=== PATIENT | female | born 1930 | race Caucasian/White ===

== ENCOUNTER 2018-04-07 14:17 | Inpatient (IN) | payer OTHER, MEDICARE ==
--- NOTE | 2018-04-07 14:28 | PDOC ---
Rapid Medical Evaluation Medical Evaluation: I have performed a brief in-person evaluation of this patient. The patient presents with a chief complaint of: Hx of atrial fibrillation on Coumadin; ecchymosis to dorsal surface of R hand from last night; saw PCP today , had INR of >8 and was sent to ED; also endorses having hematuria today; denies trauma; is taking 8 mg of Coumadin daily (used to take 9 mg, but decreased to 8 mg around 1 month ago), denies other active bleeding Pertinent physical exam findings: In NAD, bruise to dorsal aspect of R hand I have ordered the following: Labs The patient will proceed to the ED for further evaluation. 04/07/18 14:24
[2018-04-07 16:05] LABS: BASO % 0.3 % (0-2.0); EOS % 0.2 % (0-4.5); HEMATOCRIT 32.4 % (32.4-45.2); HEMOGLOBIN 10.8 GM/dL (10.7-15.3); LYMPH % 15.5 % (8-40); MCH 28.2 pg (25.7-33.7); MCHC 33.5 g/dl (32.0-36.0); MEAN CELL VOLUME 84.4 fl (80-96); MEAN PLT VOLUME 8.9 fl (7.5-11.1); MONO % 10.4 % (3.8-10.2); NEUT % 73.6 % (42.8-82.8); PLATELET COUNT 169 K/MM3 (134-434); RBC 3.84 M/mm3 (3.60-5.2); RDW 16.8 % (11.6-15.6); WHITE BLOOD COUNT 6.6 K/mm3 (4.0-10.0)
--- NOTE | 2018-04-07 16:12 | PDOC ---
History of Present Illness - General Chief Complaint: Revisit, Lab Variance Stated Complaint: PCP SENT Time Seen by Provider: 04/07/18 15:22 History Source: Patient Exam Limitations: No Limitations - History of Present Illness Initial Comments: 87 yo F with a hx of afib on coumadin (8 mg daily) presents to the emergency department from her PMD (Dr. Watkins) after a routine check for INR that showed 8. Per the patient, she had bruising on the right elbow secondary to hitting a door yesterday with a spontaneous bruise appearing throughout her lateral dorsal right hand overnight. Per the patient, she had hematuria today that was painless while at PMD's office. She has new onset of periumbilical pain that is sharp in nature without radiation and constant. She denies the following: change in diet, recent antibiotic use, and taking more than her prescribed dose. She had her last INR in mid 2017 that was supratherapeutic (unknown value) and had her warfarin reduced from 9 mg to 8 mg. Per the patient, she denies the following: weakness, FND, headaches, visual changes, chest pain, SOB , dysuria, increased urinary frequency, hematochezia, melena, and leg pain/ swelling. Shx: Appendectomy (in childhood) Meds: metoprolol, lasix, warfarin Allergies: tetracyclines Social: Denies tobacco, alcohol, and substance abuse. Past History - Past Medical History Allergies/Adverse Reactions: Allergies Allergy/AdvReac Type Severity Reaction Status Date / Time Tetracyclines Allergy Verified 04/07/18 15:45 duracef Allergy Uncoded 04/07/18 15:45 Home Medications: Ambulatory Orders Furosemide [Lasix] 20 mg PO DAILY 04/07/18 Metoprolol Succinate [Toprol Xl] 50 mg PO DAILY 04/07/18 Potassium 0 mg PO DAILY 04/07/18 Warfarin Sodium [Coumadin] 8 mg PO HS 04/07/18 Cardiac Disorders: Yes (afib) COPD: No CHF: Yes HTN: Yes - Surgical History Appendectomy: Yes - Suicide/Smoking/Psychosocial Hx Smoking History: Former smoker Have you smoked in the past 12 months: No Information on smoking cessation initiated: No Hx Alcohol Use: No Drug/Substance Use Hx: No Review of Systems - Review of Systems Able to Perform ROS?: Yes Is the patient limited Ukrainian proficient: No Constitutional: No: Chills, Diaphoresis, Fever, Weakness HEENTM: No: Eye Pain, Recent change in vision, Ear Pain, Nose Pain, Throat Pain , Mouth Pain Respiratory: No: Cough, Shortness of Breath, SOB with Exertion, Hemoptysis Cardiac (ROS): No: Chest Pain, Lightheadedness, Palpitations, Syncope, Chest Tightness ABD/GI: Yes: Abdominal cramping. No: Constipated, Diarrhea, Nausea, Poor Appetite, Poor Fluid Intake, Rectal Bleeding, Vomiting, Tarry Stools : Yes: Hematuria. No: Burning, Dysuria, Urgency Musculoskeletal: No: Back Pain, Joint Pain, Neck Pain Integumentary: Yes: Bruising. No: Dryness, Erythema, Flushing, Lesions, Lumps, Rash Neurological: No: Headache, Numbness, Paresthesia, Tingling, Tremors, Weakness, Ataxia, Dizziness Endocrine: No: Unexplained Weight Gain Hematologic/Lymphatic: No: Anemia *Physical Exam - Vital Signs Last Vital Signs Temp Pulse Resp BP Pulse Ox 98.9 F 105 H 20 146/78 97 04/07/18 15:42 04/07/18 15:42 04/07/18 15:42 04/07/18 15:42 04/07/18 15:52 - Physical Exam General Appearance: Yes: Nourished, Appropriately Dressed. No: Apparent Distress, Intoxicated HEENT: positive: EOMI, YANDY, Normal Voice, Symmetrical, Pharynx Normal, Hearing Grossly Normal. negative: Pale Conjunctivae, Scleral Icterus (R), Scleral Icterus (L), Muffled/Hoarse voice, Pharyngeal Erythema, Tonsillar Exudate, Tonsillar Erythema, Nasal Congestion, Rhinorrhea, Excessive drooling Neck: positive: Trachea midline, Supple. negative: Tender, Rigid, Lymphadenopathy (R), Lymphadenopathy (L), Tender lateral, Tender midline Respiratory/Chest: positive: Lungs Clear, Normal Breath Sounds. negative: Chest Tender, Respiratory Distress, Accessory Muscle Use, Crackles, Rales, Rhonchi, Stridor, Wheezing, Hyperresonant Cardiovascular: positive: S1, S2, Tachycardia, Systolic Murmur (grade 2), Irregularly Irregular Gastrointestinal/Abdominal: positive: Normal Bowel Sounds, Tender (mild periumbilical pain), Flat, Soft. negative: Protuberent, Distended, Rebound, Hernia Lymphatic: negative: Adenopathy Musculoskeletal: positive: Normal Inspection. negative: CVA Tenderness, Vertebral Tenderness Extremity: positive: Normal Capillary Refill, Normal Range of Motion, Other ( ecchymosis throughout the lateral right dorsal hand. ecchymosis on the right elbow with tenderness to palpation the radial head. ). negative: Normal Inspection, Tender Integumentary: positive: Dry, Warm, Ecchymosis. negative: Jaundice, Diaphoresis , Hives, Petechiae Neurologic: positive: dry color mixer II-XII NML intact, Fully Oriented, Alert, Normal Mood/ Affect, Normal Response, Motor Strength 5/5. negative: EOM Palsy, Facial Droop , Sensory Deficit Moderate Sedation - Procedure Monitoring Vital Signs: Procedure Monitoring Vital Signs Temperature 98.9 F 04/07/18 15:42 Pulse Rate 105 H 04/07/18 15:42 Respiratory Rate 20 04/07/18 15:42 Blood Pressure 146/78 04/07/18 15:42 O2 Sat by Pulse Oximetry (%) 97 04/07/18 15:52 ED Treatment Course - LABORATORY CBC & Chemistry Diagram: 04/07/18 15:10 04/07/18 15:10 Medical Decision Making - Medical Decision Making 87 yo F with a hx of afib on coumadin (8 mg daily) presents to the emergency department from her PMD (Dr. Watkins) after a routine check for INR that showed 8. Initial vitals: Initial Vital Signs Temp Pulse Resp BP Pulse Ox 98.9 F 105 H 20 146/78 97 04/07/18 15:42 04/07/18 15:42 04/07/18 15:42 04/07/18 15:42 04/07/18 15:42 Work up: ddx: hematuria likely secondary to supratherapeutic INR. patient denies recent abx, diet change, and increased dosage. patient denies hx of malignancy. unclear etiology to cause INR derangements. will assess INR in ED to guide management. Laboratory Tests 04/07/18 04/07/18 04/07/18 15:10 15:10 15:10 WBC 6.6 RBC 3.84 Hgb 10.8 Hct 32.4 MCV 84.4 MCH 28.2 MCHC 33.5 RDW 16.8 H Plt Count 169 MPV 8.9 Absolute Neuts (auto) 4.8 Neutrophils % 73.6 Lymphocytes % 15.5 Monocytes % 10.4 H Eosinophils % 0.2 Basophils % 0.3 Nucleated RBC % 0 PT with INR 192.80 H INR 15.89 H* PTT (Actin FS) 84.0 H Sodium 142 Potassium 4.2 Chloride 108 H Carbon Dioxide 25 Anion Gap 9 BUN 10 Creatinine 0.6 Creat Clearance w eGFR > 60 Random Glucose 102 Calcium 8.6 Total Bilirubin 0.8 AST 23 ALT 20 Alkaline Phosphatase 94 Total Protein 6.7 Albumin 3.6 Urine Color Urine Appearance Urine pH Ur Specific [place] Urine Protein Urine Glucose (UA) Urine Ketones Urine Blood Urine Nitrite Urine Bilirubin Urine Urobilinogen Ur Leukocyte Esterase Urine WBC (Auto) Urine RBC (Auto) Urine Bacteria 04/07/18 16:39 WBC RBC Hgb Hct MCV MCH MCHC RDW Plt Count MPV Absolute Neuts (auto) Neutrophils % Lymphocytes % Monocytes % Eosinophils % Basophils % Nucleated RBC % PT with INR INR PTT (Actin FS) Sodium Potassium Chloride Carbon Dioxide Anion Gap BUN Creatinine Creat Clearance w eGFR Random Glucose Calcium Total Bilirubin AST ALT Alkaline Phosphatase Total Protein Albumin Urine Color Red Urine Appearance Cloudy Urine pH 8.0 Ur Specific [place] 1.011 Urine Protein 2+ H Urine Glucose (UA) Negative Urine Ketones Negative Urine Blood 3+ H Urine Nitrite Negative Urine Bilirubin Negative Urine Urobilinogen Negative Ur Leukocyte Esterase Negative Urine WBC (Auto) 116 Urine RBC (Auto) 2439 Urine Bacteria Moderate INR 15.89 with a normal BUN/cr. unlikely that the raised INR due to underlying CKD or [place]. UA shows 3+ blood with 2439 RBC but no anemia. moderate urine bacteria. will order abdomen pelvis CT with contrast to evaluate for bleeding in the abdominal cavity in the setting of abdominal pain. patient was given 5 mg of Vitamin K. Will sign out patient to Dr. Amezquita with pending imaging results. *DC/Admit/Observation/Transfer Diagnosis at time of Disposition: Supratherapeutic INR - Referrals - Patient Instructions - Post Discharge Activity
--- NOTE | 2018-04-07 16:32 | PDOC ---
Attending Attestation - Medical Decision Making 04/07/18 16:48 Dr. Watkins was paged and notified via phone service. <Kamilla Vuong - Last Filed: 04/07/18 16:48> - Resident Resident Name: JennCleveland - ED Attending Attestation I have performed the following: I have examined & evaluated the patient, The case was reviewed & discussed with the resident, I agree w/resident's findings & plan - HPI HPI: 04/07/18 16:26 87-year-old female with history of atrial fibrillation on Coumadin sent from Dr. Watkins's office for supratherapeutic INR 9 on routine follow-up. Has noted painless gross hematuria for 1-2 days, and onset of supraumbilicial abd pain today without n/v/d. Bumped her R elbow into a door and has had bruising in the area, over the last day had reportedly spontaneous bruising of dorsum R hand, no pain or motor/ sensory deficit. no hematemesis/melena/BRBPR. no new meds/abx, no diet change, no mistakes in dosing. Sent here for management from Dr. Watkins's office. - Physicial Exam PE: 04/07/18 16:35 VSS, well appearing and conversant op clear without dry blood or active bleeding irreg with normal rate, lungs clear supraumbilical discomfort to palpation without guarding/rebound, no pulsatile mass, no bruising on abd or back/flank RUE: bruising over dorsal R elbow with ttp proximal radius, no joint effusion and FROM. R dorsal hand bruising without ttp/deformity, FROM with full strength. nvi. neuro intact no cvat - Medical Decision Making 04/07/18 16:37 87-year-old female presents after routine INR showed supratherapeutic level despite baseline dosing. Hemodynamically stable here but with gross hematuria at home, supraumbilical abdominal pain and discomfort on exam, and right arm bruising after minor injury. Check labs including hemoglobin and INR Check urinalysis Check CT of the abdomen and pelvis as per sending physician requests to rule out intraperitoneal bleed Right elbow x-ray to rule out possible radius fracture If above is within normal limits, no evidence of life-threatening bleed, could reverse with oral vitamin K, hold Coumadin, and arrange outpatient retesting. 04/07/18 17:05 INR >15, will start vitamin K and admit for INR monitoring. CTAP pending <Andrew Coon - Last Filed: 04/07/18 17:09>
[2018-04-07 16:42] LABS: PROTHROMBIN TIME (PATIENT) 192.8 SEC (9.7-13.0)
[2018-04-07 16:43] LABS: INR 15.89 (0.83-1.09)
[2018-04-07] MEDS ORDERED: PHYTONADIONE 5 MG TABLET PO ONE (16:48)
[2018-04-07 16:51] LABS: URINE APPEARANCE CLOUDY; URINE BILIRUBIN NEGATIVE (<2.0 mg/dL); URINE COLOR RED; URINE GLUCOSE (UA) NEGATIVE (NEGATIVE); URINE KETONE NEGATIVE (NEGATIVE); URINE LEUK ESTERASE NEGATIVE (NEGATIVE); URINE NITRITE NEGATIVE (NEGATIVE); URINE PROTEIN 2+ (NEGATIVE); URINE UROBILINOGEN NEGATIVE mg/dL (0.2-1.0)
[2018-04-07 17:03] LABS: URINE BACTERIA MODERATE /hpf (NONE SEEN)
[2018-04-07] MEDS ORDERED: PHYTONADIONE 5 MG TABLET ONE (17:41)
[2018-04-07 18:23] LABS: ALBUMIN 3.6 g/dl (3.4-5.0); ALK PHOS 94 U/L (45-117); ANION GAP 9 MMOL/L (8-16); BILIRUBIN,TOTAL 0.8 mg/dL (0.2-1); BLOOD UREA NITROGEN 10 mg/dL (7-18); CALCIUM 8.6 mg/dL (8.5-10.1); CHLORIDE 108 mmol/L (98-107); CO2 25 mmol/L (21-32); CREATININE 0.6 mg/dL (0.55-1.3); GLUCOSE,RANDOM 102 mg/dL (74-106); POTASSIUM 4.2 mmol/L (3.5-5.1); SGOT/AST 23 U/L (15-37); SGPT/ALT 20 U/L (13-61); SODIUM 142 mmol/L (136-145); TOT PROT 6.7 g/dl (6.4-8.2)
--- NOTE | 2018-04-07 23:09 | HP ---
Admitting History and Physical - Primary Care Physician PCP: Nona Montenegro - Admission Chief Complaint: bruising, bleeding gums and hematuria History of Present Illness: 87 yo F with a hx of afib on coumadin (8 mg daily) presents to the emergency department as recommended by her PCP (Dr. Watkins). Ms. Garza reports several days of bleeding gums which progressed to include swelling and bruising to right hand, lower abdominal pain, left flank pain and hematuria on the morning of 04/07. Pt denies any inciting incident to cause swelling and bruising to right hand. Patient denies, blood in stool/hemoptysis/headache/nosebleed/SOB/CP or visual changes. Ms. Garza now presents to ED after she sought evaluation in her PCPs office where her INR was noted to be 8. Vitals in ED: T 98.9, HR 105, RR 20, BP 146/78, O2sat 97%. coags: PT/NR 192/16, PTT 84. H/H 10.8/32.4 UA shows 3+ blood with 2439 RBC but no anemia. moderate urine bacteria. abdomen pelvis CT with contrast done to evaluate for bleeding in the abdominal cavity in the setting of abdominal pain. patient was given 5 mg of Vitamin K oral pt admitted for continued management of supratherapeutic INR. History Source: Patient Limitations to Obtaining History: No Limitations - Past Medical History Cardiovascular: Yes: AFIB, HTN ...: No Rheumatology: Yes: Other (osteoarthritis) - Past Surgical History Past Surgical History: Yes: Appendectomy, Cataract Removal - Advance Directives Advance Directives: Yes: Health Care Proxy (Daughter: Allyson Pearson Granddaughter: Rahel: [phone]) - Smoking History Smoking history: Former smoker Have you smoked in the past 12 months: No - Alcohol/Substance Use Hx Alcohol Use: No History of Substance Use: reports: None - Social History Usual Living Arrangement: Yes: Alone ADL: Independent History of Recent Travel: No Home Medications - Allergies Allergies/Adverse Reactions: Allergies Allergy/AdvReac Type Severity Reaction Status Date / Time lidocaine [From Xylocaine] Allergy Verified 04/07/18 23:07 Tetracyclines Allergy Verified 04/07/18 15:45 duracef Allergy Uncoded 04/07/18 15:45 - Home Medications Home Medications: Ambulatory Orders Furosemide [Lasix] 20 mg PO DAILY 04/07/18 Metoprolol Succinate [Toprol Xl] 50 mg PO DAILY 04/07/18 Potassium 0 mg PO DAILY 04/07/18 Warfarin Sodium [Coumadin] 8 mg PO HS 04/07/18 Family Disease History - Family Disease History Family Disease History: Other: Father ( (70) CVAs), Mother ( (91 ) Afib, angina), Sister ( (89) dementia, PNA) Review of Systems - Review of Systems Constitutional: reports: No Symptoms Eyes: reports: No Symptoms HENT: reports: Gingival Bleeding Neck: reports: No Symptoms Cardiovascular: reports: No Symptoms Respiratory: reports: No Symptoms Gastrointestinal: reports: No Symptoms Genitourinary: reports: Hematuria Breasts: reports: No Symptoms Reported Musculoskeletal: reports: No Symptoms Integumentary: reports: Bruising (right hand) Neurological: reports: No Symptoms Endocrine: reports: No Symptoms Hematology/Lymphatic: reports: Easily Bruised, Excessive Bleeding Psychiatric: reports: No Symptoms Physical Examination Vital Signs: Vital Signs Temperature 98.8 F 04/07/18 21:34 Pulse Rate 109 H 04/07/18 21:34 Respiratory Rate 18 04/07/18 21:34 Blood Pressure 148/84 04/07/18 21:34 O2 Sat by Pulse Oximetry (%) 97 04/07/18 21:34 Constitutional: Yes: Well Nourished, No Distress, Calm Eyes: Yes: Conjunctiva Clear, PERRL HENT: Yes: Atraumatic, Normocephalic Neck: Yes: Supple, Trachea Midline Cardiovascular: Yes: Pulse Irregular, Murmur (systolic murmur across precordium 3/5) Respiratory: Yes: Regular, CTA Bilaterally Gastrointestinal: Yes: Normal Bowel Sounds, Soft, Tenderness (LLQ) ...Rectal Exam: Yes: Deferred Renal/: Yes: Hematuria Musculoskeletal: Yes: Joint Stiffness, Other (arthritic nodes fingers of left hand) Extremities: Yes: WNL Edema: Yes Edema: LLE: Trace, RLE: Trace Peripheral Pulses WNL: Yes Peripheral Pulses: Left Radial: 2+, Right Radial: 2+ Integumentary: Yes: Bruising Neurological: Yes: Alert, Oriented ...Motor Strength: WNL Psychiatric: Yes: Alert, Oriented Labs: CBC, BMP 04/07/18:10 04/07/18 15:10 Imaging - Results Cat Scan: Report Reviewed (CT abd / pelvis 04/07/15 Impression: Increased density is seen within the left renal sinus fat surrounding the renal pelvis possibly representing blood, or inflammatory/infectious edema, and probably less likely neoplastic disease. MRI evaluation may be helpful. There is associated concentric soft tissue thickening surrounding the proximal third of the left ureter. Left perirenal soft tissue stranding is noted. Minimal left hydronephrosis is seen. Reported By: Dong Heart MD 04/07/18 [id number]) Other: Report Reviewed (CT abd and pelvis with contrast 04/07/2018 IMPRESSION: No intra-abdominal/retroperitoneal hematoma is identified. Nonspecific soft tissue stranding is seen within the left renal pelvis which could be on the basis of edema, pyelonephritis, neoplastic disease or subacute blood. No focal hematoma is noted. There also appears to be mildly diminished enhancement of the left renal cortex. Left perirenal soft tissue edema is also visualized. There is possible associated ipsilateral periureteral soft tissue edema. Probable minimal to mild left hydronephrosis is seen. There is no obvious ureteral dilatation. No definite radiopaque calculus is seen on contrast- enhanced imaging. Correlation with follow-up delayed CT is suggested. Small amount of current containing fat only. There is probable mild distention of the hepatic veins and intrahepatic segment of the inferior vena cava probably secondary to cardiac dysfunction. Correlate clinically. 1.7 cm left adrenal nodule probably representing an adenoma. Biochemical evaluation is suggested. Colonic diverticulosis. Moderate to marked chronic T12 vertebral body compression fracture with minimal to mild bony retropulsion.) Problem List - Problems (1) Atrial fibrillation Assessment/Plan: hold coumadin continue Toprol XL for rate control Vitamin K 5mg PO given in ED. PCC not available. Will order T and S for FFP infusion continuous tele neuro check Q2 monitor for massive bleeding Code(s): I48.91 - UNSPECIFIED ATRIAL FIBRILLATION (2) HTN (hypertension) Assessment/Plan: lasix 20mg daily cardiac diet Code(s): I10 - ESSENTIAL (PRIMARY) HYPERTENSION (3) Supratherapeutic INR Assessment/Plan: T and S sent FFP ordered consent to be obtained Code(s): R79.1 - ABNORMAL COAGULATION PROFILE Assessment/Plan bowel regimen with senna and colace DVT PPX: none. pt has supratherapeutic PTT and INR Dispo: Admit, Full code Visit type - Emergency Visit Emergency Visit: Yes ED Registration Date: 04/07/18 Care time: The patient presented to the Emergency Department on the above date and was hospitalized for further evaluation of their emergent condition. - New Patient This patient is new to me today: Yes Date on this admission: 04/08/18 - Critical Care Critical Care patient: No
[2018-04-08 00:35] LABS: INR 8.7 (0.83-1.09)
[2018-04-08 02:32] VITALS: BMI 25.8
[2018-04-08 06:38] LABS: HEMATOCRIT 31.3 % (32.4-45.2); HEMOGLOBIN 10.5 GM/dL (10.7-15.3); MCH 28.5 pg (25.7-33.7); MCHC 33.5 g/dl (32.0-36.0); MEAN CELL VOLUME 85.2 fl (80-96); MEAN PLT VOLUME 8.7 fl (7.5-11.1); PLATELET COUNT 145 K/MM3 (134-434); RBC 3.68 M/mm3 (3.60-5.2); RDW 16.3 % (11.6-15.6); WHITE BLOOD COUNT 6.2 K/mm3 (4.0-10.0)
[2018-04-08 06:43] LABS: INR 2.34 (0.83-1.09); PROTHROMBIN TIME (PATIENT) 27.8 SEC (9.7-13.0)
[2018-04-08 07:10] LABS: ALBUMIN 3.5 g/dl (3.4-5.0); ALK PHOS 82 U/L (45-117); ANION GAP 7 MMOL/L (8-16); BILIRUBIN,TOTAL 1.5 mg/dL (0.2-1); BLOOD UREA NITROGEN 7 mg/dL (7-18); CALCIUM 8.5 mg/dL (8.5-10.1); CHLORIDE 106 mmol/L (98-107); CO2 27 mmol/L (21-32); CREATININE 0.6 mg/dL (0.55-1.3); GLUCOSE,RANDOM 107 mg/dL (74-106); MAGNESIUM 1.9 mg/dL (1.8-2.4); PHOSPHOROUS 3.1 mg/dL (2.5-4.9); SGOT/AST 20 U/L (15-37); SGPT/ALT 21 U/L (13-61); SODIUM 140 mmol/L (136-145); TOT PROT 6.5 g/dl (6.4-8.2)
--- NOTE | 2018-04-08 09:23 | PN ---
Progress Note, Physician History of Present Illness: 87 yo F with a hx of afib on coumadin (8 mg daily) presents to the emergency department from our office. Ms. Garza reports several days of bleeding gums which progressed to include swelling and bruising to right hand, lower abdominal pain, left flank pain and hematuria on the morning of 04/07. Pt denies any inciting incident to cause swelling and bruising to right hand. Patient denies, blood in stool/hemoptysis/headache/nosebleed/SOB/CP or visual changes. UA shows 3+ blood with 2439 RBC but no anemia. moderate urine bacteria. pt admitted for continued management of supratherapeutic INR. - Current Medication List Current Medications: Active Medications Acetaminophen (Tylenol -) 650 mg PO Q6H PRN PRN Reason: FEVER Docusate Sodium (Colace -) 100 mg PO BID OBED Furosemide (Lasix -) 20 mg PO DAILY OBED Metoprolol Succinate (Toprol Xl -) 50 mg PO DAILY OBED Pantoprazole Sodium (Protonix -) 20 mg PO BID OBED Senna (Senna -) 2 tab PO HS OBED - Objective Vital Signs: Vital Signs Temperature 98.9 F 04/08/18 06:00 Pulse Rate 115 H 04/08/18 06:00 Respiratory Rate 25 H 04/08/18 06:00 Blood Pressure 133/82 04/08/18 06:00 O2 Sat by Pulse Oximetry (%) 98 04/08/18 02:21 Cardiovascular: Yes: Regular Rate and Rhythm Respiratory: Yes: Regular, CTA Bilaterally Gastrointestinal: Yes: Normal Bowel Sounds, Soft. No: Tenderness Edema: No Labs: CBC, BMP 04/08/18 05:30 04/08/18 05:30 INR, PTT INR 2.34 (0.83-1.09) H 04/08/18 05:30 Problem List - Problems (1) Retroperitoneal bleed Assessment/Plan: - Results Cat Scan: Report Reviewed (CT abd / pelvis 04/07/15 Impression: Increased density is seen within the left renal sinus fat surrounding the renal pelvis possibly representing blood, or inflammatory/infectious edema, and probably less likely neoplastic disease. MRI evaluation may be helpful. There is associated concentric soft tissue thickening surrounding the proximal third of the left ureter. Left perirenal soft tissue stranding is noted. Minimal left hydronephrosis is seen. Reported By: Dong Heart MD 04/07/18 [id number]) Other: Report Reviewed (CT abd and pelvis with contrast 04/07/2018 IMPRESSION: No intra-abdominal/retroperitoneal hematoma is identified. Nonspecific soft tissue stranding is seen within the left renal pelvis which could be on the basis of edema, pyelonephritis, neoplastic disease or subacute blood. No focal hematoma is noted. There also appears to be mildly diminished enhancement of the left renal cortex. Left perirenal soft tissue edema is also visualized. There is possible associated ipsilateral periureteral soft tissue edema. Probable minimal to mild left hydronephrosis is seen. There is no obvious ureteral dilatation. No definite radiopaque calculus is seen on contrast- enhanced imaging. Correlation with follow-up delayed CT is suggested. Small amount of current containing fat only. There is probable mild distention of the hepatic veins and intrahepatic segment of the inferior vena cava probably secondary to cardiac dysfunction. Correlate clinically. 1.7 cm left adrenal nodule probably representing an adenoma. Biochemical evaluation is suggested. Colonic diverticulosis. Moderate to marked chronic T12 vertebral body compression fracture with minimal to mild bony retropulsion.) GI and Surgical Consult Monitor cbc Code(s): R58 - HEMORRHAGE, NOT ELSEWHERE CLASSIFIED (2) Atrial fibrillation Assessment/Plan: hold coumadin Increase Toprol XL 50 bid for rate control Vitamin K 5mg PO given in ED. T and S for FFP infusion continuous tele neuro check Q2 monitor for bleeding Cardiology consult Code(s): I48.91 - UNSPECIFIED ATRIAL FIBRILLATION (3) HTN (hypertension) Assessment/Plan: On Toprol lasix 20mg daily cardiac diet Code(s): I10 - ESSENTIAL (PRIMARY) HYPERTENSION (4) Supratherapeutic INR Assessment/Plan: T and S sent FFP ordered consent to be obtained INR, PTT INR 2.34 (0.83-1.09) H 04/08/18 05:30 Code(s): R79.1 - ABNORMAL COAGULATION PROFILE
[2018-04-08] MEDS: ACETAMINOPHEN 325 MG TABLET (FP) PO PRN (09:49)
[2018-04-08] MEDS: PANTOPRAZOLE 20 MG TABLET (FP) PO SCH ×2 (09:51→21:33)
[2018-04-08] MEDS: DOCUSATE SODIUM 100 MG CAPSULE (FP) PO SCH ×2 (09:51→21:33)
[2018-04-08] MEDS: FUROSEMIDE 20 MG TABLET (FP) PO SCH (09:51)
--- NOTE | 2018-04-08 09:55 | EKG ---
Test Reason : Blood Pressure : / mmHG Vent. Rate : 110 BPM Atrial Rate : 340 BPM P-R Int : 000 ms QRS Dur : 080 ms QT Int : 352 ms P-R-T Axes : 000 014 000 degrees QTc Int : 476 ms ATRIAL FIBRILLATION WITH RAPID VENTRICULAR RESPONSE NONSPECIFIC ST ABNORMALITY ABNORMAL ECG NO PREVIOUS ECGS AVAILABLE Confirmed by KRISTA TA, HAZEL ([id number]) on 04/08/2018 9:54:55 AM Referred By: Confirmed By:HAZEL VELASCO MD
[2018-04-08 11:09] LABS: ACANTHOCYTES 0; ANISOCYTOSIS 0; HELMET CELLS 0; HOWELL-JOLLY BODIES 0; MACROCYTOSIS 0; OVALOCYTE 0; PLATELET ESTIMATE DECREASED; ROULEAU 0; SICKELED CELLS 0; TARGET CELLS 0; TEAR DROP CELLS 0; TOXIC GRANULATION 0
--- NOTE | 2018-04-08 13:11 | PN ---
Progress Note (short form) - Note Progress Note: surgery pt seen and examined. full consult dictated. 87f with afib, admitted for coumadin toxicity, inr 15, hematuria, found to have fluid around left renal pelvis on CT. INR 2 after ffp, hematuria resolved, and hgb stable. initial abd pain yesterday resolved as well. Asked to evaluate for retroperitoneal bleed. on exam abd is soft, nt. Pt aaox3 without complaints. Plan- no clinically significant retroperitoneal bleed clinically or on CT. If bleed were to develop would be managed by IR and vascular surgery if they failed. INR now in therapeutic range. Consider eval of abnormal left kidney finding. No general surgical indications for exploratory surgery.
--- NOTE | 2018-04-08 14:20 | CONS ---
DATE OF CONSULTATION: 04/08/2018 REASON FOR CONSULTATION: Retroperitoneal bleed. This is an inpatient consultation at the request of Dr. Charlene Watkins. BRIEF HISTORY: This is an 87-year-old female with history of atrial fibrillation, who was on Coumadin at home. She developed some cramping abdominal pain, blood in her urine, and significant bruising. Because of this, she went to the hospital, where she was noted to have an elevated INR of 15. She was also noted to have gross blood in her urine. She was admitted to the hospital and given fresh frozen plasma. The computer reports that one order/unit was given. Her INR improved to 8 and then to 2. The blood in her urine stopped. Her abdominal pain went away. Her hemoglobin was noted to be at 10.8 yesterday, and today it is 10.5. Her platelet count slightly dropped from 169 to 145. Her chemistries have been unremarkable without evidence of renal failure. Patient went for a CAT scan of her abdomen and pelvis, which showed initially no retroperitoneal or abdominal hematoma. There was some stranding noted around the left renal pelvis, which the gas manager opined could be edema, pyelonephritis, or neoplastic disease or possibly blood. There were other non-acute findings. The CAT scan was then repeated 4 hours later, which was now felt to have increased density in the left renal sinus, which was thought to possibly be blood. At this point, request was made for surgical evaluation for possibility and management of retroperitoneal hematoma. Patient's past medical history is as in HPI. In addition, it is noted that she has heart failure as well as hypertension. Her past surgical history includes an appendectomy. Home medications include warfarin, Lasix, and metoprolol. She has allergies to tetracycline and lidocaine and Duricef. Social history is negative for alcohol, negative for tobacco. Family history is noncontributory. REVIEW OF SYSTEMS: General: Denies fatigue. Cardiac: Denies chest pain. Respiratory: No shortness of breath. Gastrointestinal: Currently no symptoms. Genitourinary: Denies dysuria. Musculoskeletal: Denies joint pain. Psychiatric: Denies anxiety. PHYSICAL EXAMINATION: General: This is a well-developed, well-nourished 87-year-old female in no distress. Vital Signs: She is afebrile with a heart rate a little over 100. HEENT: Her head is normocephalic. Her sclerae are anicteric. Neck: Supple. Chest: Clear. Abdomen: Soft. Nontender, nondistended. There is no ecchymosis. Extremities: Her extremities have trace edema. LABORATORY DATA: As in HPI. IMAGING: As in HPI. ASSESSMENT: This is an 87-year-old female who is Coumadin toxic, with some abdominal pain that has resolved, with hematuria that is resolved, with a stable hemoglobin, who INR is now brought into a therapeutic range. At this point, CAT scan findings do suggest the possibility of blood around the left renal pelvis. Clinically, she has not had a significant bleed, evidenced by the fact that CAT scan has not had significant change, her hemoglobin has not dropped, and she is hemodynamically stable. If she were to develop a clinically significant retroperitoneal bleed, this would be managed by the interventional radiology service. The first management, however, is to control her INR, which has already been done. If interventional radiology are unable to stop her retroperitoneal bleed, the next step would be evaluation by the vascular surgical services. As far as the abnormalities of the left kidney, would consider a urological evaluation if malignancy is in the differential. In either event, patient is currently stable and there are no general surgical indications for exploration. DO CARMEN LOYD/[id number]
[2018-04-08 15:22] LABS: BASO % 0.4 % (0-2.0); EOS % 1.2 % (0-4.5); HEMATOCRIT 28.9 % (32.4-45.2); HEMOGLOBIN 9.8 GM/dL (10.7-15.3); LYMPH % 20.6 % (8-40); MCH 28.7 pg (25.7-33.7); MCHC 33.9 g/dl (32.0-36.0); MEAN CELL VOLUME 84.5 fl (80-96); MEAN PLT VOLUME 8.9 fl (7.5-11.1); MONO % 13.3 % (3.8-10.2); NEUT % 64.5 % (42.8-82.8); PLATELET COUNT 147 K/MM3 (134-434); RBC 3.42 M/mm3 (3.60-5.2); RDW 16.9 % (11.6-15.6); WHITE BLOOD COUNT 5.9 K/mm3 (4.0-10.0)
--- NOTE | 2018-04-08 16:08 | CON.CARD ---
Consult Consult Specialty:: Cardology - History of Present Illness Chief Complaint: High INR History of Present Illness: This is an 87 year old female with a PMH of AFIB on coumadin. She presents now with a supertherapeutic INR, bruising on the upper extremities and hematuria. She stated that she has baseline DUEÑAS. - Past Medical History Cardio/Vascular: Yes: AFIB, HTN ...: No Rheumatology: Yes: Other (osteoarthritis) - Past Surgical History Past Surgical History: Yes: Appendectomy, Cataract Removal - Alcohol/Substance Use Hx Alcohol Use: No History of Substance Use: reports: None - Smoking History Smoking history: Former smoker Have you smoked in the past 12 months: No - Social History ADL: Independent History of Recent Travel: No Home Medications - Allergies Allergies/Adverse Reactions: Allergies Allergy/AdvReac Type Severity Reaction Status Date / Time lidocaine [From Xylocaine] Allergy Verified 04/07/18 23:07 Tetracyclines Allergy Verified 04/07/18 15:45 duracef Allergy Uncoded 04/07/18 15:45 - Home Medications Home Medications: Ambulatory Orders Furosemide [Lasix] 20 mg PO DAILY 04/07/18 Metoprolol Succinate [Toprol Xl] 50 mg PO DAILY 04/07/18 Potassium 0 mg PO DAILY 04/07/18 Warfarin Sodium [Coumadin] 8 mg PO HS 04/07/18 Family Disease History - Family Disease History Family Disease History: Other: Father ( (70) CVAs), Mother ( (91 ) Afib, angina), Sister ( (89) dementia, PNA) Vital Signs: Vital Signs Temperature 98.9 F 04/08/18 14:00 Pulse Rate 110 H 04/08/18 14:00 Respiratory Rate 22 H 04/08/18 14:00 Blood Pressure 122/89 04/08/18 14:00 O2 Sat by Pulse Oximetry (%) 94 L 04/08/18 10:00 Constitutional: Yes: No Distress Eyes: Yes: WNL HENT: Yes: WNL Neck: Yes: WNL Respiratory: Yes: CTA Bilaterally Gastrointestinal: Yes: Soft JVD: No Heart Sounds: Yes: S1, S2 (1/6 ZAY RUSB) Extremities: Yes: WNL (Bruising noted) Edema: No Neurological: Yes: Alert, Oriented - Other Data Labs, Other Data: CBC, BMP 04/08/18 14:30 04/08/18 05:30 INR, PTT INR 2.34 (0.83-1.09) H 04/08/18 05:30 Assessment/Plan 87 year old female with a PMH of AFIB on coumadin. She presents now with a supertherapeutic INR, bruising on the upper extremities and hematuria. High INR Agree with initially given Vitiamin K and FFP. Follow CBC's Hold coumadin, INR is now 2.34, would wait for the next reading prior to restarting coumadin Would favor 5 mg for now She can not tolerate DOAC's (rash) AFIB rates are high, this may be secondary to blood loss, would recheck CBC Continue Toprol XL 50 mg PO BID
--- NOTE | 2018-04-08 18:03 | CON.GI ---
Consult Consult Specialty:: GI Reason for Consultation:: abdominal pain - History of Present Illness History of Present Illness: 87 y/o F was admitted because of abdominal pain, hematuria seconary to Coumadin toxicity. Overnight she was given FFP which gave complete relief of her symptoms. She tolerated solid food this evening. She denies nausea,vomiting, melena and rectal bleeding. She had undergone EGD and colonoscopy with Dr Whipple more 10 years ago - Past Medical History Cardio/Vascular: Yes: AFIB, HTN ...: No Rheumatology: Yes: Other (osteoarthritis) - Past Surgical History Past Surgical History: Yes: Appendectomy, Cataract Removal - Alcohol/Substance Use Hx Alcohol Use: No History of Substance Use: reports: None - Smoking History Smoking history: Former smoker Have you smoked in the past 12 months: No - Social History ADL: Independent History of Recent Travel: No Home Medications - Allergies Allergies/Adverse Reactions: Allergies Allergy/AdvReac Type Severity Reaction Status Date / Time lidocaine [From Xylocaine] Allergy Verified 04/07/18 23:07 Tetracyclines Allergy Verified 04/07/18 15:45 duracef Allergy Uncoded 04/07/18 15:45 - Home Medications Home Medications: Ambulatory Orders Furosemide [Lasix] 20 mg PO DAILY 04/07/18 Metoprolol Succinate [Toprol Xl] 50 mg PO DAILY 04/07/18 Potassium 0 mg PO DAILY 04/07/18 Warfarin Sodium [Coumadin] 8 mg PO HS 04/07/18 Family Disease History - Family Disease History Family Disease History: Other: Father ( (70) CVAs), Mother ( (91 ) Afib, angina), Sister ( (89) dementia, PNA) Review of Systems - Review of Systems Constitutional: denies: No Symptoms, Chills, Diaphoresis, Fever, Lethargy, Loss of Appetite, Malaise, Night Sweats, Unintentional Wgt. Loss, Weakness, Other Eyes: denies: No Symptoms, Blind Spots, Blurred Vision, Double Vision, Eye Pain , Floaters, Photophobia, Recent Change in Vision, Other HENT: denies: No Symptoms, Difficult Swallowing, Ear Discharge, Ear Pain, Epistaxis, Gingival Bleeding, Hearing Loss, Mouth Swelling, Nasal Congestion, Ocular Prosthesis, Throat Pain, Toothache, Ringing in Ears, Other Neck: denies: No Symptoms, Decreased ROM, Lumps, Pain on Movement, Stiffness, Swollen Glands, Tenderness, Other Cardiovascular: denies: No Symptoms, Chest Pain, Edema, Palpitations, Shortness of Breath, Other Respiratory: denies: No Symptoms, Cough, Exercise Intolerance, Hemoptysis, Orthopnea, PND, Snoring, SOB, SOB on Exertion, Wheezing, Other Gastrointestinal: denies: No Symptoms, Abdominal Pain, Bloating, Constipation, Diarrhea, Dysphagia, Indigestion, Melena, Nausea, Rectal Bleeding, Vomiting, Vomiting Blood, Other Physical Exam-GI Vital Signs: Vital Signs Temperature 98.9 F 04/08/18 14:00 Pulse Rate 110 H 04/08/18 14:00 Respiratory Rate 22 H 04/08/18 14:00 Blood Pressure 122/89 04/08/18 14:00 O2 Sat by Pulse Oximetry (%) 94 L 04/08/18 10:00 Constitutional: Yes: Well Nourished Eyes: Yes: Conjunctiva Clear HENT: Yes: Atraumatic Neck: Yes: Supple Cardiovascular: Yes: Regular Rate and Rhythm Respiratory: Yes: CTA Bilaterally ...Palpate: Yes: Soft. No: Firm/Rigid, Guarding, Hepatomegaly, Mass, Pulsatile Mass, Splenomegaly, Tenderness, Tenderness, Epigastium Labs: CBC, BMP 04/08/18 14:30 04/08/18 05:30 INR, PTT INR 2.34 (0.83-1.09) H 04/08/18 05:30 Hepatic Panel Total Bilirubin 1.5 mg/dL (0.2-1) H 04/08/18 05:30 AST 20 U/L (15-37) 04/08/18 05:30 ALT 21 U/L (13-61) 04/08/18 05:30 Alkaline Phosphatase 82 U/L (45-117) 04/08/18 05:30 Albumin 3.5 g/dl (3.4-5.0) 04/08/18 05:30 Problem List - Problems (1) Resolved abdominal pain Assessment/Plan: r/o secondary to ischemia R> keep HGB above 8 Code(s): [id number] - (2) Anemia Assessment/Plan: most likelly secondary to hematuria R> continue supportive management stool guaiac od x 3 Code(s): D64.9 - ANEMIA, UNSPECIFIED
[2018-04-08] MEDS: SENNOSIDES 8.6MG TABLET (FP) PO SCH (21:30)
[2018-04-09 06:35] LABS: BASO % 0.4 % (0-2.0); EOS % 2.1 % (0-4.5); HEMATOCRIT 28.2 % (32.4-45.2); HEMOGLOBIN 9.6 GM/dL (10.7-15.3); LYMPH % 16.3 % (8-40); MCH 28.8 pg (25.7-33.7); MCHC 34.1 g/dl (32.0-36.0); MEAN CELL VOLUME 84.6 fl (80-96); MEAN PLT VOLUME 8.7 fl (7.5-11.1); MONO % 11.7 % (3.8-10.2); NEUT % 69.5 % (42.8-82.8); PLATELET COUNT 133 K/MM3 (134-434); RBC 3.33 M/mm3 (3.60-5.2); RDW 16.4 % (11.6-15.6); WHITE BLOOD COUNT 6.3 K/mm3 (4.0-10.0)
[2018-04-09] MEDS: ACETAMINOPHEN 325 MG TABLET (FP) PO PRN ×2 (07:00→22:00)
[2018-04-09 07:20] LABS: INR 1.81 (0.83-1.09); PROTHROMBIN TIME (PATIENT) 21.5 SEC (9.7-13.0)
[2018-04-09 08:06] LABS: ALK PHOS 68 U/L (45-117); ANION GAP 8 MMOL/L (8-16); BILIRUBIN,TOTAL 1.3 mg/dL (0.2-1); BLOOD UREA NITROGEN 9 mg/dL (7-18); CALCIUM 7.9 mg/dL (8.5-10.1); CHLORIDE 107 mmol/L (98-107); CO2 26 mmol/L (21-32); CREATININE 0.6 mg/dL (0.55-1.3); GLUCOSE,RANDOM 100 mg/dL (74-106); POTASSIUM 3.8 mmol/L (3.5-5.1); SGOT/AST 15 U/L (15-37); SGPT/ALT 17 U/L (13-61); SODIUM 141 mmol/L (136-145); TOT PROT 5.6 g/dl (6.4-8.2)
[2018-04-09] MEDS: PANTOPRAZOLE 20 MG TABLET (FP) PO SCH ×2 (11:35→22:00)
[2018-04-09] MEDS: DOCUSATE SODIUM 100 MG CAPSULE (FP) PO SCH ×3 (11:35→22:20)
[2018-04-09] MEDS: FUROSEMIDE 20 MG TABLET (FP) PO SCH (11:35)
--- NOTE | 2018-04-09 11:58 | PN ---
Progress Note, Physician Chief Complaint: patient seen and examined in icu no distress awake alert no more hematuria INR noted to start coumadin today - Current Medication List Current Medications: Active Medications Acetaminophen (Tylenol -) 650 mg PO Q6H PRN PRN Reason: FEVER Last Admin: 04/09/18 07:00 Dose: 650 mg Docusate Sodium (Colace -) 100 mg PO BID REPLACED BY [facility] Last Admin: 04/09/18 11:35 Dose: 100 mg Furosemide (Lasix -) 20 mg PO DAILY REPLACED BY [facility] Last Admin: 04/09/18 11:35 Dose: 20 mg Metoprolol Succinate (Toprol Xl -) 50 mg PO BID REPLACED BY [facility] Last Admin: 04/09/18 11:35 Dose: 50 mg Pantoprazole Sodium (Protonix -) 20 mg PO BID REPLACED BY [facility] Last Admin: 04/09/18 11:35 Dose: 20 mg Senna (Senna -) 2 tab PO HS REPLACED BY [facility] Last Admin: 04/08/18 21:30 Dose: 2 tab Warfarin Sodium (Coumadin -) 5 mg PO DAILY@1800 REPLACED BY [facility] - Objective Vital Signs: Vital Signs Temperature 98.3 F 04/09/18 06:00 Pulse Rate 90 04/09/18 06:00 Respiratory Rate 18 04/09/18 06:00 Blood Pressure 123/78 04/09/18 06:00 O2 Sat by Pulse Oximetry (%) 96 04/09/18 09:00 Constitutional: Yes: Calm Cardiovascular: Yes: Pulse Irregular, S1, S2 Respiratory: Yes: CTA Bilaterally Gastrointestinal: Yes: Normal Bowel Sounds, Soft Edema: No Neurological: Yes: Alert, Oriented Labs: CBC, BMP 04/09/18 05:30 04/09/18 05:30 INR, PTT INR 1.81 (0.83-1.09) H 04/09/18 05:30 Problem List - Problems (1) Anemia Assessment/Plan: will monitor h/h keep Hgb above 8 stool occult ordered Code(s): D64.9 - ANEMIA, UNSPECIFIED (2) Atrial fibrillation Assessment/Plan: toprol xl 50mg bid inr is 1.81 start coumadin 5 mg daily daily inr check Code(s): I48.91 - UNSPECIFIED ATRIAL FIBRILLATION
[2018-04-09] MEDS: WARFARIN NA 5 MG TABLET (UD) PO SCH (19:16)
[2018-04-09] MEDS: SENNOSIDES 8.6MG TABLET (FP) PO SCH ×2 (22:00→22:20)
[2018-04-10 07:58] LABS: BASO % 0.7 % (0-2.0); EOS % 5.5 % (0-4.5); HEMATOCRIT 30.8 % (32.4-45.2); HEMOGLOBIN 10.5 GM/dL (10.7-15.3); LYMPH % 29.3 % (8-40); MCH 28.9 pg (25.7-33.7); MCHC 34.1 g/dl (32.0-36.0); MEAN CELL VOLUME 84.9 fl (80-96); MEAN PLT VOLUME 8.6 fl (7.5-11.1); MONO % 12.2 % (3.8-10.2); NEUT % 52.3 % (42.8-82.8); PLATELET COUNT 152 K/MM3 (134-434); RBC 3.63 M/mm3 (3.60-5.2); RDW 16.2 % (11.6-15.6); WHITE BLOOD COUNT 4.5 K/mm3 (4.0-10.0)
[2018-04-10 08:19] LABS: INR 1.72 (0.83-1.09); PROTHROMBIN TIME (PATIENT) 20.4 SEC (9.7-13.0)
[2018-04-10 08:28] LABS: ALBUMIN 3.2 g/dl (3.4-5.0); ALK PHOS 72 U/L (45-117); ANION GAP 5 MMOL/L (8-16); BILIRUBIN,TOTAL 1.1 mg/dL (0.2-1); BLOOD UREA NITROGEN 14 mg/dL (7-18); CALCIUM 8.3 mg/dL (8.5-10.1); CHLORIDE 106 mmol/L (98-107); CO2 29 mmol/L (21-32); CREATININE 0.6 mg/dL (0.55-1.3); GLUCOSE,RANDOM 86 mg/dL (74-106); POTASSIUM 3.7 mmol/L (3.5-5.1); SGOT/AST 12 U/L (15-37); SGPT/ALT 17 U/L (13-61); SODIUM 140 mmol/L (136-145); TOT PROT 6.1 g/dl (6.4-8.2)
[2018-04-10] MEDS: FUROSEMIDE 20 MG TABLET (FP) PO SCH (09:20)
[2018-04-10] MEDS: PANTOPRAZOLE 20 MG TABLET (FP) PO SCH (09:20)
[2018-04-10] MEDS: DOCUSATE SODIUM 100 MG CAPSULE (FP) PO SCH (09:20)
--- NOTE | 2018-04-10 09:54 | PN ---
GI Progress Note Subjective: patient was seen in the ICU last evening, contnue to have no abdominal pain and tolerating diet, hematuria resolved - Objective Vital Signs: Vital Signs Temperature 98.2 F 04/10/18 02:00 Pulse Rate 97 H 04/10/18 06:00 Respiratory Rate 22 H 04/10/18 06:00 Blood Pressure 112/77 04/10/18 06:00 O2 Sat by Pulse Oximetry (%) 96 04/09/18 09:00 Constitutional: Well Nourished, Poor Hygeine HENT: Yes: Atraumatic Neck: Yes: Supple Cardiovascular: Yes: Regular Rate and Rhythm Respiratory: Yes: CTA Bilaterally ...Palpate: Yes: Soft. No: Firm/Rigid, Guarding, Hepatomegaly, Mass, Pulsatile Mass, Splenomegaly, Tenderness Labs: CBC, BMP 04/10/18 05:30 04/10/18 05:30 INR, PTT INR 1.72 (0.83-1.09) H 04/10/18 05:30 Problem List - Problems (1) Resolved abdominal pain Code(s): [id number] - (2) Anemia Assessment/Plan: R> made aware to follow up further gi work up as an outpatient Code(s): D64.9 - ANEMIA, UNSPECIFIED
[2018-04-10 10:37] VITALS: BP 121/80; PULSE 96; TEMP 97
--- NOTE | 2018-04-10 15:41 | DS ---
Physical Examination Vital Signs: Vital Signs Temperature 97.0 F L 04/10/18 10:00 Pulse Rate 96 H 04/10/18 10:00 Respiratory Rate 20 04/10/18 10:00 Blood Pressure 121/80 04/10/18 10:00 O2 Sat by Pulse Oximetry (%) 97 04/10/18 09:00 Findings/Remarks: Patient is an 87 y/o female that presented to ED on 04/07/18 with complaints of hematuria, bleeding gums, lower abdominal pain and L flank pain. Patient noted to have INR 15.89. Received vitamin K and transfused with FFP. Constitutional: Yes: Well Nourished, No Distress, Calm Eyes: Yes: Conjunctiva Clear Neck: Yes: Supple Cardiovascular: Yes: Pulse Irregular Respiratory: Yes: Regular, CTA Bilaterally Gastrointestinal: Yes: Normal Bowel Sounds, Soft Musculoskeletal: Yes: WNL Extremities: Yes: WNL Edema: No Integumentary: Yes: WNL Neurological: Yes: Alert, Oriented Psychiatric: Yes: Alert, Oriented Labs: CBC, BMP 04/10/18 05:30 04/10/18 05:30 Discharge Summary Reason For Visit: ELEVATED INR,AT RISK FOR FALLS Current Active Problems Anemia (Acute) Atrial fibrillation (Acute) HTN (hypertension) (Acute) Resolved abdominal pain (Acute) Retroperitoneal bleed (Acute) Supratherapeutic INR (Acute) Hospital Course: Patient is an 87 y/o female that presented to ER on 04/07/18 from PCP office with complaints of hematuria, bleeding gums, L flank pain and lower abdominal pain. Patient was on Coumadin 8mg for a-fib. In ER INR 15.89, received vitamin K PO and was transfused with FFP. Since then bleeding has subsided, INR has decreased, currently 1.72 and was restarted on Coumadin 5mg HS on . Denies chest pain, sob, dizziness. Condition: Stable - Instructions Diet, Activity, Other Instructions: Patient instructed to follow up with PMD on 04/13/18 for INR instructed to continue med regimen if notice any bleeding or abdominal pain to call PMD or call 911 low sodium diet [facility] services in place Referrals: Charlene Watkins MD [Primary Care Provider] - Ge Hickman MD [Staff Physician] - Disposition: VNS/HOME HEALTH CARE - Home Medications Comprehensive Discharge Medication List: Ambulatory Orders Docusate Sodium [Colace -] 100 mg PO BID #60 capsule 04/10/18 Furosemide [Lasix] 20 mg PO DAILY #30 tablet 04/10/18 Metoprolol Succinate [Toprol XL -] 50 mg PO BID #60 tab.sr.24h 04/10/18 Pantoprazole Sodium [Protonix -] 20 mg PO BID #60 tablet.ec 04/10/18 Sennosides [Senna -] 2 tab PO HS #60 tablet 04/10/18 Warfarin Na [Coumadin -] 5 mg PO DAILY@1800 #30 tablet 04/10/18
[2018-04-10] MEDS: WARFARIN NA 5 MG TABLET (UD) PO SCH (17:17)
== END 2018-04-10 18:08 | disposition home health service (06) | DRG 813 ==
LOC: JER 14:17 → JERBED 19:56 → OBSVTOIN 23:01 → J2W 04-08 01:58 → J4W 04-09 20:49
PROVIDERS: ADMIT Family Medicine; ATTEND Family Medicine
PROC: 30283B1 Transfusion of Nonautologous 4-Factor Prothrombin Complex Concentrate into Vein, Percutaneous Approach (ICD-10-PCS; principal; 2018-04-08)
DX: D68.32 Hemorrhagic disorder due to extrinsic circulating anticoagulants (principal); I48.91 Unspecified atrial fibrillation; Z79.01 Long term (current) use of anticoagulants; I11.0 Hypertensive heart disease with heart failure; I50.9 Heart failure, unspecified; J44.9 Chronic obstructive pulmonary disease, unspecified; Z87.891 Personal history of nicotine dependence; R31.0 Gross hematuria
CPT/HCPCS: 36415; 36430; 73070-TC-RT-FY; 74176-TC; 74177-TC; 80053; 81003; 81015; 83735; 84100; 85025; 85610; 85730; 86850; 86900; 86901; 87086; 93005; 93010; 99285-25; G0378; P9017